=== PATIENT | male | born 1975 | race Caucasian/White ===

== ENCOUNTER 2017-01-10 05:21 | Day surgery (SDC) | payer BC ==
[2017-01-10] MEDS ORDERED: Dextrose 5%-Lactated Ringers 1,000 ML IV SCH (06:30)
[2017-01-10] MEDS ORDERED: Midazolam 1 MG/ML 2 ML SDV ONE (06:43)
[2017-01-10] MEDS ORDERED: Propofol 200 MG/20 ML SDV ONE ×2 (06:43→07:17)
[2017-01-10] MEDS ORDERED: fentaNYL 100 MCG/2 ML SDV ONE (06:43)
[2017-01-10] MEDS ORDERED: Bupivacaine 0.25%/EPINEPHrine 1:200,000 30 ML SDV ONE (06:51)
[2017-01-10] MEDS ORDERED: Bupivacaine 0.5% 50 ML MDV ONE (06:52)
[2017-01-10] MEDS ORDERED: Lidocaine 1% with EPINEPHrine 1:100,000 50 ML MDV ONE (06:52)
[2017-01-10] MEDS ORDERED: fentaNYL 250 MCG/5 ML SDV ONE (07:11)
[2017-01-10] MEDS ORDERED: ceFAZolin 2 GM in Sodium Chloride 0.9% 100 ML IV ONE (07:15)
[2017-01-10] MEDS ORDERED: ceFAZolin 2 GM in Sodium Chloride 0.9% 50 ML IV ONE (07:15)
[2017-01-10] MEDS ORDERED: Lactated Ringers 1,000 ML ONE (08:09)
[2017-01-10] MEDS ORDERED: Ketorolac 60 MG/2 ML SDV IM ONE (08:30)
[2017-01-10] MEDS ORDERED: Diphtheria/Tetanus Toxoids,Adult (Td) 0.5 ML SDV IM ONE (08:30)
[2017-01-10] MEDS ORDERED: Acetaminophen/oxyCODONE 325-5 MG Tab PO PRN (09:08)
[2017-01-10 09:58] VITALS: BP 159/92
--- NOTE | 2017-01-14 11:01 | OR ---
DATE OF PROCEDURE: 01/10/2017 PREOPERATIVE DIAGNOSES: 1. Right inguinal hernia. 2. Chronic pain in the right ilioinguinal nerve and genital branch of genitofemoral nerve distributions. POSTOPERATIVE DIAGNOSES: 1. Incarcerated right inguinal hernia. 2. Chronic pain in right ilioinguinal and genital branch of genitofemoral nerve distributions. OPERATIVE PROCEDURE: 1. Repair of incarcerated right inguinal hernia with mesh (57060). 2. Division of right ilioinguinal nerve (68224). 3. Division of genital branch of genitofemoral nerve (78870). ANESTHESIA: Local plus IV sedation. INDICATION FOR PROCEDURE: This is a 41-year-old presenting with a right inguinal hernia and some chronic pain radiating down into the scrotum, as well as in the area above that. This being in the distribution of the ilioinguinal nerve and genital branch of genitofemoral nerve. Plan will be to proceed with an open repair of the inguinal hernia with mesh plug technique, along with division of the above nerves. This will result in some areas of cutaneous anesthesia and may not necessarily relieve the neuropathic pain. Potential risks otherwise including bleeding, infection, injury to underlying viscera, possible recurrence of the hernia over time were all reviewed, and the patient wishes to proceed. DETAILS OF PROCEDURE: The patient was taken to the operating room and after IV sedation was administered, the abdomen and groin areas were prepped and draped. The right ilioinguinal nerve root area and inguinal floor on the right side were anesthetized with 1% lidocaine mixed with Marcaine. A standard right inguinal incision was made and carried down through the skin and subcutaneous tissue and through the external oblique aponeurosis. The patient had a direct hernia that had become incarcerated over the area medial and posterior to the cord structures. The cord structures were mobilized upward and the transversalis fascia over the hernia were incised. This allowed reduction of what appeared to be some perivesical fat that had been incarcerated within the hernia. At this point, the ilioinguinal nerve was identified and divided at the far edge of the incision, and what appeared to be the genital branch of genitofemoral nerve was identified within the cord structures, traced down proximal to the level of the internal ring, and divided there as well. Specimens of both were sent for pathologic confirmation. An extra large mesh plug was then placed into the defect and affixed to Dedrick's ligament with titanium tacking screws inferiorly and then to the underside of the conjoined tendon medially, superiorly, and laterally with horizontal mattress sutures of 3-0 Vicryl stitch. The flat portion of the mesh plug system was then placed over the floor and sutured lateral to the cord structures with some 3-0 Vicryl stitch. The external oblique aponeurosis was then approximated with 3-0 Vicryl stitch, as was the David's fascia. The skin was closed with a 4-0 Vicryl subcuticular stitch. Dressing was applied. The patient was taken to the recovery room in satisfactory condition. There were no evident complications. Physician administrative assistant, Chrissie Camacho, played an essential role in assisting in this case, helping to position the patient, retract structures as needed, as well as suturing and cutting sutures when indicated. Her presence improved the patient's safety and decreased the operative time. Indra Wallace MD /[id number]
== END 2017-01-10 10:58 | disposition home or self-care (01) ==
LOC: JP.SDS 05:21
PROVIDERS: ATTEND Surgery
DX: K40.30 Unilateral inguinal hernia, with obstruction, without gangrene, not specified as recurrent (principal); G57.81 Other specified mononeuropathies of right lower limb; G58.8 Other specified mononeuropathies; Z23 Encounter for immunization
CPT/HCPCS: 49507; 64772; 88305; 90714; A9270; C1781; J0690; J1885; J2250; J2704; J3010; J7042; J7050; J7120

== ENCOUNTER 2018-06-12 05:35 | Day surgery (SDC) | payer BC, MEDICAID ==
[2018-06-12] MEDS ORDERED: Acetaminophen 500 MG Tab PO ONE (05:45)
[2018-06-12] MEDS ORDERED: Celecoxib 200 MG Cap PO ONE (05:45)
[2018-06-12] MEDS ORDERED: Gabapentin 400 MG Cap PO ONE (05:45)
[2018-06-12] MEDS ORDERED: Dextrose 5%-Lactated Ringers 1,000 ML IV SCH (06:45)
[2018-06-12] MEDS ORDERED: Bupivacaine 0.5%/EPINEPHrine 1:200,000 50 ML MDV ONE (06:48)
[2018-06-12] MEDS ORDERED: Dexamethasone 4 MG/ML SDV ONE (07:07)
[2018-06-12] MEDS ORDERED: fentaNYL 250 MCG/5 ML SDV ONE (07:07)
[2018-06-12] MEDS ORDERED: Ondansetron 4 MG/2 ML SDV ONE (07:07)
[2018-06-12] MEDS ORDERED: Rocuronium 50 MG/5 ML Vial ONE (07:07)
[2018-06-12] MEDS ORDERED: Neostigmine Methylsulfate 1 MG/ML 5 ML Syringe ONE (07:07)
[2018-06-12] MEDS ORDERED: Propofol 200 MG/20 ML SDV ONE (07:07)
[2018-06-12] MEDS ORDERED: Glycopyrrolate 0.2 MG/ML 5 ML MDV ONE (07:07)
[2018-06-12] MEDS ORDERED: ceFAZolin 2 GM in Premix Bag 1 BAG IV ONE (07:15)
[2018-06-12] MEDS ORDERED: Ketamine 500 MG/5 ML MDV IV SCH (07:30)
[2018-06-12] MEDS ORDERED: Triamcinolone Acetonide 40 MG/ML 1 ML MDV ONE (07:36)
[2018-06-12] MEDS ORDERED: Ketorolac 60 MG/2 ML SDV IM ONE (08:30)
[2018-06-12] MEDS ORDERED: Acetaminophen/oxyCODONE 325-5 MG Tab PO PRN (09:32)
[2018-06-12 09:57] VITALS: BP 145/91
--- NOTE | 2018-06-22 14:15 | OR ---
DATE OF PROCEDURE: 06/12/2018 PREOPERATIVE DIAGNOSIS: Chronic right groin and scrotal pain. POSTOPERATIVE DIAGNOSIS: Chronic right groin and scrotal pain associated with: 1. Cord venous plexus and epididymis. 2. Right hydrocele. 3. Branch of right ilioinguinal nerve entrapped by scar. OPERATIVE PROCEDURE: Right groin exploration with freeing of scar around the cord structures, and; 1. Epididymectomy (72089). 2. Right hydrocelectomy (39225). 3. Division of anterior right ilioinguinal nerve (36618). ANESTHESIA: General. BLOCKER AND POLISHER: Chrissie Camacho PA-C. INDICATIONS FOR PROCEDURE: This is a 42-year-old male presenting with a chronic right groin pain, previously undergone right inguinal hernia repair and then subsequently division of the ilioinguinal nerve as well as genital branch of the genitofemoral nerve. He had done well for a period of time, but recently he has now had recurrent problems with pain involving the lower right inguinal area and scrotal area. On both clinical exam as well as ultrasound exam, he was noted to have somewhat engorged and painful epididymis on the right side. Plan is to proceed with a right groin exploration with remaining scar on the cord structures and epididymectomy and look for any additional scarring around the nerve and nerve branches in the region with division of those nerves if identified. Potential risks of procedure including bleeding, infection, possibility that the procedure may not be effective in terms of pain control were all reviewed, and the patient wishes to proceed. DETAILS OF PROCEDURE: The patient was taken to the operating room and placed in a supine position after general endotracheal anesthesia was induced. The abdomen, groin, and scrotal areas were prepped and draped. Previous right inguinal incision was then made and carried down through the skin, subcutaneous tissue, and through the external oblique aponeurosis. Laparotomy flaps were raised superiorly and inferiorly. The patient did have a fair bit of scarring around the cord structures, and the cord structures were freed up of surrounding scar and we also made sure that the point where the cord structures entered the internal ring was freed up of scar and adequately sized at this point as well. During the course of this dissection, what appeared to be a branch of the right ilioinguinal nerve was identified running along the cord structures and this was divided. The right testicle was then brought up into the field. The patient was noted to have a small hydrocele present. This was excised and then epididymectomy was then performed with electrocautery going up to the point where it entered into the vas deferens. The free edges thus were then sutured with a running 4-0 Vicryl stitch as the vas was also ligated with 4-0 Vicryl stitches as well. At this point, no further problems were noted. The testicles were replaced back into the scrotum. A 7-[place] Manas-Acuna drain was then brought through a stab wound lateral to the incision, taken down into the scrotum to drain any fluid or blood that might accumulate there. The external oblique aponeurosis was then approximated with a 3-0 Vicryl stitch as was David's fascia and the skin closed with 4-0 Vicryl subcuticular stitch. Dressing was applied. Prior to closure, the patient also had Marcaine and 40 mg of Kenalog injected into the field to try to dampen an ongoing inflammatory response. The patient was taken to the recovery room in satisfactory condition. Physician reading assistant, Chrissie Camacho, played an essential role in assisting in this case, helping to position the patient, retract structures as needed, as well as suturing and cutting sutures when indicated. Her presence improved the patient's safety and decreased the operative time. Indra Wallace MD /[id number]
== END 2018-06-12 10:30 | disposition home or self-care (01) ==
LOC: JP.SDS 05:35
PROVIDERS: ATTEND Surgery
DX: N43.3 Hydrocele, unspecified (principal); N45.1 Epididymitis; N50.89 Other specified disorders of the male genital organs; G57.81 Other specified mononeuropathies of right lower limb; I10 Essential (primary) hypertension; Z79.899 Other long term (current) drug therapy
CPT/HCPCS: 54860; 55040; 64772; 88302; 88305; 88342; A9270; J0690; J1100; J1885; J2405; J2704; J2710; J3010; J3301; J3490; J7042

== ENCOUNTER 2018-06-26 19:00 | Emergency (ER) | payer MEDICAID ==
[2018-06-26 19:20] VITALS: BP 147/89
[2018-06-26] MEDS ORDERED: Lidocaine 1% with EPINEPHrine 1:100,000 50 ML MDV INJECT ONE (20:23)
--- NOTE | 2018-06-26 20:58 | EDM.PDOC ---
ED HPI GENERAL MEDICAL PROBLEM - General Chief Complaint: Wound Recheck Stated Complaint: INFECTION FROM SURGERY ON ABD Time Seen by Provider: 06/26/18 19:34 Source of Information: Reports: Patient History Limitations: Reports: No Limitations - History of Present Illness INITIAL COMMENTS - FREE TEXT/NARRATIVE: He had surgery about 10 days ago for removal of scar tissue after previous rt inguinal hernia repair as well as removal of rt epididymis. Noted Rt hydrocoele. KENNETH drain removed on Friday or 4 days ago. Today notes pus from KENNETH site and seems to be swelling to area under incision line. right groin area Pain Score (Numeric/FACES): 3 - Related Data Allergies Allergy/AdvReac Type Severity Reaction Status Date / Time naproxen [From Aleve] Allergy Hives Verified 06/26/18 19:28 sulfamethoxazole Allergy Cannot Verified 06/26/18 19:28 [From Bactrim] Remember trimethoprim [From Bactrim] Allergy Cannot Verified 06/26/18 19:28 Remember Home Meds: Home Meds Gabapentin [Neurontin] 400 mg PO TID 12/27/16 [History] Celecoxib 200 mg PO DAILY 06/10/18 [History] Multivitamin with Minerals [Multiple Vitamin] 1 tab PO DAILY 06/10/18 [History] Past Medical History HEENT History: Reports: None Cardiovascular History: Reports: High Cholesterol, Hypertension Gastrointestinal History: Reports: GERD Genitourinary History: Reports: None Musculoskeletal History: Reports: None Endocrine/Metabolic History: Reports: Obesity/BMI 30+ Hematologic History: Reports: Blood Transfusion(s) Oncologic (Cancer) History: Reports: Lymphoma Other Oncologic History: Hodgkins Lymphoma approx. 22 years ago - Infectious Disease History Infectious Disease History: Reports: Chicken Pox, Shingles - Past Surgical History HEENT Surgical History: Reports: LASIK, Oral Surgery Other HEENT Surgeries/Procedures: wisdom teeth GI Surgical History: Reports: EGD, Hernia, Inguinal, Other (See Below) Other GI Surgeries/Procedures: 06/12/18 scare tissue removed from injuinal hernia repair Male Surgical History: Reports: Vasectomy, Other (See Below) Other Male Surgeries/Procedures: Hydrocele repair 06/12/18 Musculoskeletal Surgical History: Reports: Shoulder Surgery Social & Family History - Family History Family Medical History: Noncontributory Cardiac: Reports: Hypertension Neurological: Reports: Dementia Endocrine/Metabolic: Reports: Diabetes, type II, Hypothyroidism Oncologic: Reports: Pancreatic - Tobacco Use Smoking Status *Q: Never Smoker - Caffeine Use Caffeine Use: Reports: Coffee, Energy Drinks, Soda, Tea - Recreational Drug Use Recreational Drug Use: No ED ROS GENERAL - Review of Systems Review Of Systems: ROS reveals no pertinent complaints other than HPI. ED EXAM, SKIN/RASH Exam: See Below Exam Limited By: No Limitations General Appearance: Alert, WD/WN, No Apparent Distress GI/Abdominal: Other (Healing incision in RT inguinal area. No erythema. Yellow/ pink pus from associated KENNETH site. Palpation of incision line shows thickening and pus oozes from KENNETH site. Testicle swollen but doesn't seem infected.) Course - Vital Signs Last Recorded V/S: Last Vital Signs Temp 36.2 C 06/26/18 19:15 Pulse 86 06/26/18 19:15 Resp 18 06/26/18 19:15 BP 147/89 H 06/26/18 19:15 Pulse Ox 98 06/26/18 19:15 - Orders/Labs/Meds Orders: Active Orders 24 hr Category Date Time Status CULTURE WOUND + SMEAR [RM] Stat Lab 06/26/18 19:55 Results Meds: Medications Discontinued Medications Generic Name Dose Route Start Last Admin Trade Name Jasonq PRN Reason Stop Dose Admin Lidocaine/Epinephrine 30 ml 06/26/18 20:23 06/26/18 20:28 Xylocaine 1% With Epinephrine 1:100,000 INJECT 06/26/18 20:24 30 ml ONETIME ONE Administration - Re-Assessments/Exams Free Text/Narrative Re-Assessment/Exam: 06/26/18 20:57 Culture sent from KENNETH site drainage. Discussed with Dr Mathews and he has come to ER to open the wound. Free Text/Narrative Re-Assessment/Exam: 06/26/18 21:12 Dr Mathews opened wound and lavaged. GM stain showed Gm+ cocci in clusters, rare Gm- rods Per Alisa will rx percocet and Augmentin 06/26/18 21:13 Departure - Departure Time of Disposition: 21:15 Disposition: Home, Self-Care 01 Condition: Fair Clinical Impression: Surgical wound infection - Discharge Information Referrals: Shaniqua Sheppard PA-C [Primary Care Provider] - Forms: ED Department Discharge Additional Instructions: Take Augmentin 875 mg twice daily for 1 week. Take Percocet 5/325 1 or 2 every 4 hours for pain. Causes sedation and can impair driving. Can lead to addiction. See Dr Mathews on Friday am as planned. - My Orders Last 24 Hours: My Active Orders 06/26/18 19:55 CULTURE WOUND + SMEAR [RM] Stat - Assessment/Plan Last 24 Hours: My Active Orders 06/26/18 19:55 CULTURE WOUND + SMEAR [RM] Stat
--- NOTE | 2018-06-26 23:58 | OR ---
DATE OF PROCEDURE: 06/26/2018 PREPROCEDURE DIAGNOSIS: Right groin wound infection status post right inguinal hernia repair and right epididymectomy. POSTPROCEDURE DIAGNOSIS: Right groin wound infection status post right inguinal hernia repair and right epididymectomy. PROCEDURE PERFORMED: Incision and drainage of right inguinal incision. ANESTHESIA: Lidocaine 1% with epinephrine local. INDICATIONS: This 42-year-old white male underwent right inguinal hernia repair on the 12 of June as well as right epididymectomy by Dr. Wallace. A Manas-Acuna drain was left in place and was removed 4 days ago. Today, he noticed purulent material coming out of the drain site. He has no fever or chills. He is not particularly tender. The area is not erythematous. When palpating over the incision, purulent material comes out of the drain site. Gram stain of this shows numerous gram-positive cocci, few gram-negative rods and numerous white blood cells. I counseled him for incision and drainage of this by opening his wound and then packing it with plan for healing by secondary intention including risks and alternatives and gave his informed consent to proceed. DESCRIPTION OF PROCEDURE: The patient's lower abdomen, groin and genitalia were prepped and draped in usual sterile fashion. A 1% lidocaine with epinephrine was infiltrated along the incision. Incision was then opened. Underlying subcutaneous sutures were incised and the abscess cavity was opened. This released copious quantities of a yellow thick material. The purulent material was irrigated out with saline and clean and then the incision was packed with 1 inch iodoform gauze. A sterile dressing was applied. He tolerated the procedure well. He is going to return about 36 hours to remove the packing and begin local wound care at that time. He will be given a week of oral Augmentin and also some pain medication by Dr. Harris. He tolerated the procedure well. Aron Mathews MD /[id number]
== END 2018-06-26 21:27 | disposition home or self-care (01) ==
LOC: JP.ED 19:00
DX: T81.4XXA Infection following a procedure, initial encounter (principal); I10 Essential (primary) hypertension; E66.9 Obesity, unspecified; Z88.8 Allergy status to other drugs, medicaments and biological substances; Z88.2 Allergy status to sulfonamides
CPT/HCPCS: 87070; 87077; 87186; 87205; 99283